=== PATIENT | male | born 1995 | race Caucasian/White ===

== ENCOUNTER 2022-06-03 13:01 | Emergency (ER) | payer SELFPAY ==
[2022-06-03 13:47] VITALS: BMI 24.9
[2022-06-03] MEDS ORDERED: SODIUM CHLORIDE 0.9% 500 ML INFUS.BAG IV ONE (15:24)
[2022-06-03 15:51] LABS: HEMATOCRIT 45.9 % (35.4-49); HEMOGLOBIN 15.5 GM/dL (11.7-16.9); MCH 30.1 pg (25.7-33.7); MCHC 33.8 g/dl (32.0-35.9); MEAN PLT VOLUME 8.6 fl (7.5-11.1); PLATELET COUNT 277 10^3/uL (134-434); RBC 5.16 M/mm3 (4.00-5.60); RDW 12.9 % (11.9-15.9); WHITE BLOOD COUNT 7.5 K/mm3 (4.0-10.0)
[2022-06-03 16:06] LABS: CHLORIDE 102 mmol/L (98-107); SODIUM 138 mmol/L (136-145)
[2022-06-03 16:08] LABS: CALCIUM 9.8 mg/dL (8.5-10.1)
[2022-06-03 16:09] LABS: ALBUMIN 4.8 g/dl (3.4-5.0); ANION GAP 11 MMOL/L (8-16); BLOOD UREA NITROGEN 10.2 mg/dL (7-18); CO2 25 mmol/L (21-32); GLUCOSE,RANDOM 86 mg/dL (74-106)
[2022-06-03 16:12] LABS: CREATININE 0.9 mg/dL (0.55-1.3); SGOT/AST 15 U/L (15-37); SGPT/ALT 23 U/L (13-61)
[2022-06-03 16:13] LABS: BILIRUBIN,TOTAL 1.5 mg/dL (0.2-1); TOT PROT 7.9 g/dl (6.4-8.2)
[2022-06-03 16:15] LABS: ALK PHOS 76 U/L (45-117)
[2022-06-03] MEDS ORDERED: NALOXONE HCL 0.4 MG/ML VIAL IVPUSH ONE (17:16)
[2022-06-03] MEDS ORDERED: NALOXONE HCL 0.4 MG/ML VIAL ONE (17:23)
[2022-06-03 18:41] VITALS: BP 117/65; PULSE 60; RESP 14; TEMP 97.9
== END 2022-06-03 19:45 | disposition home or self-care (01) ==
LOC: JER 13:01
PROC: 3E033GC Introduction of Other Therapeutic Substance into Peripheral Vein, Percutaneous Approach (ICD-10-PCS; principal; 2022-06-03)
DX: F19.90 Other psychoactive substance use, unspecified, uncomplicated (principal)
CPT/HCPCS: 36415; 80053; 80307; 85027; 93005; 93010; 99284-25